=== PATIENT | female | born 1970 | race Two or more races ===

== ENCOUNTER → 2019-05-14 | Outpatient (CLI) | payer OTHER ==
--- NOTE | 2019-05-14 13:29 | RAD ---
EXAM: Chest, 2 views. HISTORY: Cough. COMPARISON: None. FINDINGS: 2 views of the chest are obtained. There is no infiltrate, pleural effusion or pneumothorax. The heart is normal in size. IMPRESSION: No acute pulmonary finding. Electronically signed by: Asmita Drummond MD (05/14/2019 1:26 PM) [place] [id number]
--- NOTE | 2019-05-14 17:59 | RAD ---
DATE: 05/14/2019 EXAM: DIGITAL DIAGNOSTIC BILATERAL HISTORY: Left-sided breast pain COMPARISON: None available. Prior exams were reportedly performed in [place] 5 years ago. This study was interpreted with the benefit of Computerized Aided Detection (CAD). Breast Density: HETERO The breast parenchyma is heterogenously dense, which could reduce sensitivity of mammography. Breast parenchyma level C. FINDINGS: No suspicious calcifications, dominant masses, or distortion. Asymmetries identified but upon spot compression imaging, there is no suspicious finding. IMPRESSION: Benign findings. BI-RADS CATEGORY: 1 NEGATIVE. If prior exams are made available, a comparison addendum may be provided. RECOMMENDED FOLLOW-UP: 12M 12 MONTH FOLLOW-UP PQRS compliance statement: Patient information was entered into a reminder system with a target due date in one year for the next mammogram. Mammography is a sensitive method for finding small breast cancers, but it does not detect them all and is not a substitute for careful clinical examination. A negative mammogram does not negate a clinically suspicious finding and should not result in delay in biopsying a clinically suspicious abnormality. "Our facility is accredited by the [employer] Mammography Program."
== END | disposition home or self-care (01) ==
LOC: MAMMO 09:10
PROVIDERS: ATTEND Family Medicine
DX: R92.8 Other abnormal and inconclusive findings on diagnostic imaging of breast (principal); N64.4 Mastodynia; R05 Cough
CPT/HCPCS: 71046; 77066